=== PATIENT | male | born 1950 | race Hispanic/Latino ===

== ENCOUNTER 2018-02-10 06:08 | Day surgery (SDC) | payer MEDICARE ==
[2018-02-01 15:04] VITALS: BMI 25.1
[2018-02-10] MEDS ORDERED: Bupivacaine 0.5% 50 ML IJ ONE (07:21)
[2018-02-10] MEDS ORDERED: Propofol 10 mg/ml Inj (20 ML) ONE (07:37)
[2018-02-10] MEDS ORDERED: Succinylcholine 200 mg/10 ml Inj IV ONE (07:38)
[2018-02-10] MEDS ORDERED: Rocuronium 10 mg/ml (5 ml) ONE (07:38)
[2018-02-10] MEDS ORDERED: CeFAZolin 1 gm in NS 100ml IVPB ONE (07:50)
[2018-02-10] MEDS ORDERED: Bupivacaine 0.5% Inj(30mL) IJ ONE (07:58)
[2018-02-10] MEDS ORDERED: ePHEDrine 50 mg/ml Inj ONE (08:07)
--- NOTE | 2018-02-10 09:35 | PCM.SURG1 ---
Surgeon's Initial Post Op Note - Surgeon's Notes Surgeon: Dr. Martinez [facility] Specialist: Dr. Cervantes, Dr. Ram Type of Anesthesia: General Endo Pre-Operative Diagnosis: Left inguinal hernia Operative Findings: see operative dictation note Post-Operative Diagnosis: same Operation Performed: Open left inguinal hernia repair with mesh Specimen/Specimens Removed: hernia sac Estimated Blood Loss: EBL {In ML}: 5 Blood Products Given: N/A Drains Used: No Drains Post-Op Condition: Good Date of Surgery/Procedure: 02/10/18 Time of Surgery/Procedure: 09:34
[2018-02-10] MEDS ORDERED: Lactated Ringer's 1,000 ML IV SCH (09:45)
[2018-02-10] MEDS: HYDROmorphone 0.5 mg/0.5 ml ISec IVP PRN ×2 (09:53→10:10)
[2018-02-10] MEDS ORDERED: HYDROmorphone 0.5 mg/0.5 ml ISec ONE ×7 (09:56→11:47)
[2018-02-10] MEDS ORDERED: HYDROmorphone 0.5 mg/0.5 ml ISec IVP ONE ×4 (10:25→11:45)
[2018-02-10] MEDS ORDERED: HYDROmorphone 0.5 mg/0.5 ml ISec IVP PRN (11:01)
[2018-02-10 12:42] VITALS: RESP 20; TEMP 98.5
[2018-02-10 15:52] VITALS: BP 117/76; PULSE 56; O2SAT 97
--- NOTE | 2018-02-11 02:33 | OP ---
PROCEDURE DATE: 02/10/2018 PREOPERATIVE DIAGNOSIS: Left inguinal hernia. POSTOPERATIVE DIAGNOSIS: Indirect left inguinal hernia. SURGEON: Zeferino Martinez MD ASSISTANTS: Dr. Cervantes and Dr. Ram. TYPE OF ANESTHESIA: General endotracheal anesthesia. ANESTHESIA ADMINISTERED BY: Dr. Shelby. ESTIMATED BLOOD LOSS: Minimal. SPECIMEN: Hernia sac and cord lipoma. INDICATIONS: The patient is a 67-year-old male with history of left groin bulge, associated with tenderness and discomfort. The patient was examined, was noted to have left inguinal hernia, and was scheduled for repair. DESCRIPTION OF PROCEDURE: The patient was brought to the operating room and placed on the operating room table in a supine position. The patient was connected to EKG, blood pressure, and pulse oximetry monitors. The patient then underwent general endotracheal anesthesia, was prepped and draped in the usual sterile fashion. First a standard time-out procedure took place, when everybody in the room agreed as to the patient's identity, diagnoses, and procedure to be performed. Using lidocaine mixed with Marcaine, the area of the incision was infiltrated and #15 blade was used in order to access the left groin area through skin incision. We then carried the incision through the subcutaneous fat and fascia down to the external oblique aponeurosis. That was exposed carefully and incised along its fibers. Both sides were elevated and from the surrounding tissues, exposing the cord with structures surrounding it as well as hernia sac. We then carefully mobilized the spermatic cord and elevated on a Diego drain. The cord structures were then from the hernia sac which was carefully twisted and ligated at its base and amputated. The cord lipoma which was quite large was also from the surrounding tissue, ligated at its base and amputated. Both of these were sent as a specimen. Now, the internal ring was carefully mobilized and the preperitoneal space was mobilized by pushing the fat away from it. UltraPro plug was then placed into the defect with the posterior leads in the preperitoneal space and the anterior leads sutured to the edges of transversalis fascia and the inguinal ligament. A keyhole cut-out was placed for accommodation of the spermatic cord structures. Once this was done, we then sutured the edges of the keyhole together behind the spermatic cord access site and placed it flatly on the floor of the inguinal canal. The cord was now placed back in its original position on top of the mesh. The ilioinguinal nerve was put on top of the cord. The external oblique aponeurosis was sutured using 3-0 Vicryl in a running fashion. The area of the internal ring was infiltrated with lidocaine mixed with Toradol for analgesia. The wound was copiously irrigated. All the irrigant fluid was suctioned out. There was excellent hemostasis. The wound was now closed in layers using 3-0 Vicryl for the Leilani's fascia, 3-0 Vicryl for the deep dermal layer, and 4-0 Monocryl for skin. A sterile Dermabond dressing was applied to the wound. The patient tolerated the procedure well and there were no complications. The patient was awakened and transferred to the recovery room for further observation. Zeferino Martinez MD [facility]
== END 2018-02-10 16:00 | disposition home or self-care (01) ==
LOC: EDBD 06:08 → SDS 06:08
PROVIDERS: ATTEND General Practice
DX: K40.90 Unilateral inguinal hernia, without obstruction or gangrene, not specified as recurrent (principal); D17.6 Benign lipomatous neoplasm of spermatic cord; I10 Essential (primary) hypertension